=== PATIENT | male | born 1985 | race Caucasian/White ===

== ENCOUNTER 2019-07-17 11:27 | Emergency (ER) | payer MEDICARE, MEDICAID, SELFPAY ==
[2019-07-17 11:41] VITALS: BMI 28.6
[2019-07-17 11:44] VITALS: BP 141/92; PULSE 71; RESP 16; TEMP 36.5; O2SAT 97
--- NOTE | 2019-07-17 11:55 | W.ED.GENADLT ---
HPI - General Adult General: Chief complaint: Headache Stated complaint: HEADACHES Time Seen by Provider: 07/17/19 11:44 History of Present Illness: HPI narrative: Patient complains of headaches pain starts back neck radiates up behind the eye. Patient is under a lot of stress just with finances and home things. Says he has some dental pain right lower molars. complaint: Tension headache Onset (ago): day(s) Location: head Radiation: non-radiation Severity scale (1-10): 6 Quality: aching and constant (Last 2 days) Pain Consistency: constant Relieving factors: none Exacerbating factors: none Associated symptoms: Reports no associated symptoms and headache(s) (Neck pain); Deny chest pain, dyspnea, nausea, rash or vomiting Treatments prior to arrival: NSAID (And acetaminophen) Review of Systems Const: Denies: fever, chills or body aches Eyes: Denies: change in vision or blurry vision ENMT: Reports: dental pain and other (Dental pain); Denies: throat pain or nasal congestion Card: Denies: chest pain or shortness of breath on exertion Resp: Denies: shortness of breath, productive cough or non-productive cough GI: Denies: abdominal pain, nausea or vomiting : Denies: difficulty urinating Musc: Denies: extremity pain Skin/Breast: Denies: rash Neuro: Reports: headache (Neck pain) Psych: Denies: anxiety or depression Cyrus/Lymph: Denies: easy bruising PFSH ED PFSH: Social History Smoking and tobacco status: never smoked Physical Exam Const: COMMON NORMALS: no apparent distress, average body habitus and oriented x3 HENMT: COMMON NORMALS: normocephalic HEAD & SCALP: normal to inspection and normocephalic FACE & SINUS: normal facial exam MOUTH: other (Cavities lower molars right side no swelling no abscess) Eye: COMMON NORMALS: conjunctivae normal GENERAL EYE: normal appearance of both eyes CONJUNCTIVA: Yes conjunctivae normal Neck/C-Spine: COMMON NORMALS: no JVD CERVICAL SPINE: Yes cervical ROM normal and Yes other (Does have tightness to his trapezius bilaterally and his neck consistent with tension) Chest: COMMONS NORMALS: inspection of chest normal Resp: COMMON NORMALS: normal respiratory effort and clear to auscultation bilaterally AUSCULTATION: clear to auscultation bilaterally Cardio: COMMON NORMALS: no JVD, regular rate and regular rhythm RATE: regular rate RHYTHM: regular rhythm GI: COMMON NORMALS: normal to inspection, nondistended, normoactive bowel sounds Extremity: COMMON NORMALS: normal to inspection and full ROM Neuro: COMMON NORMALS: oriented x3 Course Vital Signs: Vital signs: Vital Signs Temperature 97.7 F 07/17/19 11:44 Pulse Rate 71 07/17/19 11:44 Respiratory Rate 16 07/17/19 11:44 Blood Pressure 141/92 07/17/19 11:44 Pulse Oximetry 97 07/17/19 11:44 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
[2019-07-17] MEDS: orphenadrine 30 mg/mL Inj 2 mL 60 MG IVP (11:59)
[2019-07-17] MEDS: ondansetron 2 mg/ML SDV 2 mL 4 MG IVP (11:59)
[2019-07-17] MEDS: ketorolac 30 mg/mL INJ IVP (11:59)
[2019-07-17 13:16] VITALS: BP 114/62; PULSE 83; RESP 16; O2SAT 98
== END 2019-07-17 12:56 | disposition home or self-care (01) ==
PROVIDERS: Emergency Provider Nurse Practitioner Family; Family Provider Family Medicine; PCP Family Medicine
DX: R51 Headache (principal)
CPT/HCPCS: 12345; 96374; 96375; 99282; 99283; J1885; J2360; J2405

== ENCOUNTER 2019-07-18 14:44 | Emergency (ER) | payer MEDICARE, MEDICAID, SELFPAY ==
[2019-07-18 14:48] VITALS: BP 152/79; PULSE 86; RESP 18; TEMP 36.6; O2SAT 97; BMI 28.6
--- NOTE | 2019-07-18 14:52 | XR_ITS ---
WS: [id number] LUMBAR SPINE TECHNIQUE: 3 views of the lumbar spine CLINICAL INFORMATION: injury COMPARISON: None. FINDINGS: Hypoplastic ribs at T12. Slight chronic anterior wedging at T11. Five [id number] lumbar vertebra l bodies. Mild lumbar curve convex left. Mild disc space narrowing L5-S1. Disc space heights are othe rwise well preserved. No compression fractures. No spondylolisthesis. Visualized sacroiliac joints ar e normal. Normal visualized soft tissues. Partially visualized bowel gas pattern is normal. XR/XR lumbar spine 2-3V* [id number] IMPRESSION: Unremarkable lumbar spine
--- NOTE | 2019-07-18 14:56 | W.ED.FALL ---
HPI - Fall General: Chief Complaint: Fall Stated Complaint: lionel pain/fall Time Seen by Provider: 07/18/19 14:50 Source: patient Mode of arrival: ambulatory Limitations: no limitations History of Present Illness: HPI Narrative: 33-year-old male states he fell yesterday landed on his back has had low back pain since then. He states his pain is a 6 out of 10 is worse with walking. States that improved with rest. He denies any other injuries. He denies any difficulty going to the bathroom. MD complaint: fall Onset (ago): day(s) Fall from: standing Place fall occurred: home Loss of consciousness: None Prolonged down time: no Symptoms prior to fall: none Associated symptoms-after fall: Denies abdominal pain, chest pain, headache(s) or neck pain Review of Systems Const: Denies: fever, chills, body aches or change in appetite Eyes: Denies: blurry vision or eye discomfort ENMT: Denies: throat pain or dental pain Card: Denies: chest pain Resp: Denies: shortness of breath GI: Denies: abdominal pain, nausea, vomiting or diarrhea : Denies: painful urination Musc: Reports: back pain; Denies: neck pain Skin/Breast: Denies: rash Neuro: Denies: headache Psych: Denies: depression Cyrus/Lymph: Denies: easy bruising All/Imm: Denies: hives PFSH ED PFSH: Social History Smoking and tobacco status: never smoked Physical Exam Const: COMMON NORMALS: no apparent distress, oriented x3 and healthy appearing HENMT: COMMON NORMALS: normocephalic and head/scalp atraumatic HEAD & SCALP: normocephalic and atraumatic Eye: COMMON NORMALS: PERRL and EOMs intact bilaterally PUPIL: Yes PERRL Neck/C-Spine: COMMON NORMALS: full ROM and supple Chest: COMMONS NORMALS: inspection of chest normal and palpation of chest normal Resp: COMMON NORMALS: normal respiratory effort, no retractions, no use of accessory muscles and clear to auscultation bilaterally AUSCULTATION: clear to auscultation bilaterally Cardio: COMMON NORMALS: regular rate, regular rhythm and no murmurs RATE: regular rate RHYTHM: regular rhythm GI: COMMON NORMALS: normal to inspection, nondistended, normoactive bowel sounds, soft to palpation, non-tender and no masses PALPATION: Yes soft Back/Pelvis: OTHER: paraspinal tenderness over lumbar spine Extremity: COMMON NORMALS: normal to inspection and full ROM Neuro: COMMON NORMALS: oriented x3, moves all extremities and no focal motor deficits Psych: COMMON NORMALS: mental status grossly normal, thought process normal and cooperative THOUGHT PROCESS: normal thought process Skin: COMMON NORMALS: no rashes or lesions noted and no wounds GENERAL SKIN EXAM: no rashes or lesions noted Course Vital Signs: Vital signs: Vital Signs Temperature 97.8 F 07/18/19 14:48 Pulse Rate 86 07/18/19 14:48 Respiratory Rate 18 07/18/19 14:48 Blood Pressure 152/79 07/18/19 14:48 Pulse Oximetry 97 07/18/19 14:48 MDM - Fall MDM Narrative: Medical decision making narrative: Patient presents with low back strain from a fall. X-ray shows no fracture and exam here is benign. Patient is stable for discharge and is to follow-up with primary care doctor in 3 to 5 days return if worsening. Imaging Data^: xr lumar: Attestation: I personally reviewed and interpreted this imaging study as follows: My impression: no acute abnormality Discharge Plan Discharge Patient Disposition: Home, Self-Care Condition: Stable Prescriptions: New Robaxin-750 750 mg tablet 750 mg PO Q6H Qty: 30 RF: 0 EC-Naprosyn 500 mg tablet,delayed release (DR/EC) 500 mg PO BID PRN (Reason: pain) Qty: 20 RF: 0 No Action [id number] [Fioricet] 50-300-40 mg capsule 1 cap PO Q8H PRN (Reason: pain) Qty: 14 RF: 0 esomeprazole magnesium 40 mg capsule,delayed release(DR/EC) 40 mg PO DAILY RF: 0 gabapentin 300 mg capsule 300 mg PO BEDTIME RF: 0 Discharge Orders: Discharge Order (Routine); Ordered 07/18/19 Ordered By: Martha Jones Referrals: Kayla Flood DO [Primary Care Provider] - 4-7 days Discharge Diet: Advance as tolerated Discharge Activity: Resume usual activity Patient Instructions: Low Back Strain (ED) Coding Level of Care Code ED 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
[2019-07-18] MEDS: naproxen 500 mg Tablet PO (15:17)
[2019-07-18 15:48] VITALS: BP 103/54; PULSE 68; RESP 18; TEMP 36.5; O2SAT 97
== END 2019-07-18 15:47 | disposition home or self-care (01) ==
PROVIDERS: Emergency Provider Emergency Medicine; Family Provider Family Medicine; PCP Family Medicine
DX: S39.012A Strain of muscle, fascia and tendon of lower back, initial encounter (principal); W19.XXXA Unspecified fall, initial encounter
CPT/HCPCS: 12345; 72100; 99281

== ENCOUNTER 2019-07-19 17:59 | Emergency (ER) | payer MEDICARE, MEDICAID, SELFPAY ==
[2019-07-19 18:00] VITALS: BP 136/91; PULSE 79; RESP 18; TEMP 37.1; O2SAT 97; BMI 28.6
[2019-07-19 18:29] VITALS: RESP 16
--- NOTE | 2019-07-19 18:46 | W.ED.BACK ---
HPI - Back Pain/Injury General: Chief Complaint: Back Pain/Injury Stated Complaint: neck and back pain Time Seen by Provider: 07/19/19 18:29 Source: patient Mode of arrival: ambulatory Limitations: no limitations History of Present Illness: HPI Narrative: 33-year-old male who has been seen her last 2 days for back pain after a fall. He states he is continued to have back pain and now has some right groin pain. States it is worse when he walks. Denies any fevers. States pain is a 4 out of 10. Associated symptoms: Reports abdominal pain; Deny chills, dysuria, fever(s), nausea or vomiting Review of Systems Const: Denies: fever, chills, body aches or change in appetite Eyes: Denies: blurry vision or eye discomfort ENMT: Denies: throat pain or dental pain Card: Denies: chest pain Resp: Denies: shortness of breath GI: Reports: abdominal pain; Denies: nausea, vomiting or diarrhea : Denies: painful urination Musc: Reports: back pain; Denies: neck pain Skin/Breast: Denies: rash Neuro: Denies: headache Psych: Denies: depression Cyrus/Lymph: Denies: easy bruising All/Imm: Denies: hives PFSH ED PFSH: Social History Smoking and tobacco status: never smoked Physical Exam Const: COMMON NORMALS: no apparent distress, oriented x3 and healthy appearing HENMT: COMMON NORMALS: normocephalic and head/scalp atraumatic HEAD & SCALP: normocephalic and atraumatic Eye: COMMON NORMALS: PERRL and EOMs intact bilaterally PUPIL: Yes PERRL Neck/C-Spine: COMMON NORMALS: full ROM and supple Chest: COMMONS NORMALS: inspection of chest normal and palpation of chest normal Resp: COMMON NORMALS: normal respiratory effort, no retractions, no use of accessory muscles and clear to auscultation bilaterally AUSCULTATION: clear to auscultation bilaterally Cardio: COMMON NORMALS: regular rate, regular rhythm and no murmurs RATE: regular rate RHYTHM: regular rhythm GI: COMMON NORMALS: normal to inspection, nondistended, normoactive bowel sounds, soft to palpation and no masses PALPATION: Yes soft OTHER: Slight tenderness in right lower quadrant no tenderness over McBurney's point. No testicular tenderness Back/Pelvis: OTHER: Paraspinal tenderness with no midline back tenderness Extremity: COMMON NORMALS: normal to inspection and full ROM Neuro: COMMON NORMALS: oriented x3, moves all extremities and no focal motor deficits Psych: COMMON NORMALS: mental status grossly normal, thought process normal and cooperative THOUGHT PROCESS: normal thought process Skin: COMMON NORMALS: no rashes or lesions noted and no wounds GENERAL SKIN EXAM: no rashes or lesions noted Course Vital Signs: Vital signs: Vital Signs Temperature 98.7 F 07/19/19 18:00 Pulse Rate 78 07/19/19 20:15 Respiratory Rate 16 07/19/19 20:15 Blood Pressure 128/74 07/19/19 20:15 Pulse Oximetry 98 07/19/19 20:15 MDM - Back Pain/Injury MDM Narrative: Medical decision making narrative: Patient presents with low back pain and groin pain after a fall. Patient had x-ray yesterday is negative. Patient's lab work here is normal as well and is no signs of appendicitis. Patient feels improved at discharge and he is to follow-up with his primary care doctor in 3 to 5 days return to the ER if worsening. He understands and agrees to plan. Lab Data: Labs: Lab Results 07/19/19 07/19/19 07/19/19 Range/Units 18:14 18:14 18:50 WBC 10.4 H (4.0-10.0) 10^3/ uL RBC 5.20 (4.1-5.3) 10^6/u L Hgb 15.6 (11.7-16.6) g/dL Hct 47.3 (42.0-52.0) % MCV 91.0 (80-94) fL MCH 30.0 (28.0-34.0) pg MCHC 33.0 (30.0-36.0) g/dL RDW 12.5 (12.1-15.1) % Plt Count 350 (130-400) 10^3/c mm MPV 10.0 (7.4-10.4) fL Neut % (Auto) 66.2 % Lymph % (Auto) 24.9 % [place] % (Auto) 6.4 % Eos % (Auto) 1.4 % Baso % (Auto) 0.8 % Neut # (Auto) 6.9 (1.8-7.7) 10^3/u L Lymph # (Auto) 2.6 (0.8-4.8) 10^3/u L [place] # (Auto) 0.7 (0.2-0.9) 10^3/u L Eos # (Auto) 0.1 (0.0-0.8) 10^3/u L Baso # (Auto) 0.1 (0.0-0.1) 10^3/u L Nucleated RBC % (a uto) 0 % Nucleated RBCs # 0.0 /100WBC Sodium 140 (136-145) mmol/L Potassium 4.1 (3.5-5.1) mmol/L Chloride 102 (98-107) mmol/L Carbon Dioxide 27 (22-29) mmol/L Anion Gap 15.1 (5-19) BUN 13 (6-20) mg/dL Creatinine 1.0 (0.7-1.2) mg/dL GFR Calculation 86.1 L (90-130) mL/min Glucose 96 (65-115) mg/dL Calculated Osmolal ity 286 (285-295) mOsm/k g Calcium 9.5 (8.5-10.5) mg/dL Urine Color Yellow (Yellow) Urine Appearance Clear (CLEAR) Urine pH 5 (5-7) Ur Specific Gravit y 1.020 (1.005-1.030) Urine Protein Neg (Negative) Urine Glucose (UA) Norm (Normal) Urine Ketones 1+ H (Negative) Urine Blood Neg (Negative) Urine Nitrate Negative (Negative) Urine Bilirubin Neg (NEGATIVE) Urine Urobilinogen 1 H (Negative) mg/dL Ur Leukocyte [place] ase Negative (Negative) Discharge Plan Discharge Patient Disposition: Home, Self-Care Clinical Impression: Strain of lumbar region Qualifiers: Encounter type: subsequent encounter Qualified Code(s): S39.012D - Strain of muscle, fascia and tendon of lower back, subsequent encounter Condition: Stable Prescriptions: No Action [id number]-[id number] [Fioricet] 50-300-40 mg capsule 1 cap PO Q8H PRN (Reason: pain) Qty: 14 RF: 0 esomeprazole magnesium 40 mg capsule,delayed release(DR/EC) 40 mg PO DAILY RF: 0 gabapentin 300 mg capsule 300 mg PO BEDTIME RF: 0 Robaxin-750 750 mg tablet 750 mg PO Q6H Qty: 30 RF: 0 EC-Naprosyn 500 mg tablet,delayed release (DR/EC) 500 mg PO BID PRN (Reason: pain) Qty: 20 RF: 0 Discharge Orders: Discharge Order (Routine); Ordered 07/19/19 Ordered By: Martha Jones Referrals: Kayla Flood DO [Primary Care Provider] - 4-7 days Discharge Diet: Advance as tolerated Discharge Activity: Resume usual activity Patient Instructions: Low Back Strain (ED) Discharge Date/Time: 07/19/19 20:17 Coding Level of Care Code ED Self Pay Specialist for Chg Fwd Exam Comprehensive
[2019-07-19 18:50] LABS: Basophils # 0.1 10^3/uL (0.0-0.1); Basophils % 0.8 %; Eosinophils # 0.1 10^3/uL (0.0-0.8); Eosinophils % 1.4 %; Hematocrit 47.3 % (42.0-52.0); Hemoglobin 15.6 g/dL (11.7-16.6); Lymphocytes # 2.6 10^3/uL (0.8-4.8); Lymphocytes % 24.9 %; Monocytes # 0.7 10^3/uL (0.2-0.9); Monocytes % 6.4 %; Neutrophils # 6.9 10^3/uL (1.8-7.7); Neutrophils % 66.2 %; Nucleated Red Blood Cells % 0 %; Platelet Count 350 10^3/cmm (130-400); Red Cell Distribution Width 12.5 % (12.1-15.1); White Blood Count 10.4 10^3/uL (4.0-10.0)
[2019-07-19] MEDS: ketorolac 60 mg/2 mL INJ IM (18:52)
[2019-07-19 19:05] LABS: Anion Gap 15.1 (5-19); Blood Urea Nitrogen 13 mg/dL (6-20); Calcium 9.5 mg/dL (8.5-10.5); Carbon Dioxide 27 mmol/L (22-29); Chloride 102 mmol/L (98-107); Glomerular Filtration Rate 86.1 mL/min (90-130); Glucose 96 mg/dL (65-115); Osmolality Calculated 286 mOsm/kg (285-295); Potassium 4.1 mmol/L (3.5-5.1); Sodium 140 mmol/L (136-145)
[2019-07-19 19:55] LABS: Add Urine Microscopic? NO; Urine Color Yellow (Yellow)
[2019-07-19 19:56] LABS: Bilirubin Urine Neg (NEGATIVE); Blood Urine Neg (Negative); Glucose Urine UA Norm (Normal); Ketones Urine 1+ (Negative); Leukocyte Esterase Urine Negative (Negative); Nitrate Urine Negative (Negative); Protein Urine Neg (Negative); Urine Appearance Clear (CLEAR); Urobilinogen Urine 1 mg/dL (Negative); pH Urine 5 (5-7)
[2019-07-19 20:15] VITALS: BP 128/74; PULSE 78; RESP 16; O2SAT 98
== END 2019-07-19 20:17 | disposition home or self-care (01) ==
PROVIDERS: Emergency Provider Emergency Medicine; Family Provider Family Medicine; PCP Family Medicine
DX: S39.012A Strain of muscle, fascia and tendon of lower back, initial encounter (principal); W19.XXXA Unspecified fall, initial encounter
CPT/HCPCS: 12345; 36415; 80048; 81003; 85025; 96372; 99281; 99283; A9270; J1885